=== PATIENT | male | born 1990 ===

== ENCOUNTER 2024-05-17 15:21 | Emergency (ER) | payer OTHER, BC | END 2024-05-17 16:37 | LOC: LL.ED 15:21 | DX: S43.101A Unspecified dislocation of right acromioclavicular joint, initial encounter (principal); M25.811 Other specified joint disorders, right shoulder; Z79.899 Other long term (current) drug therapy; X58.XXXA Exposure to other specified factors, initial encounter | CPT/HCPCS: 73030-RT; 99283 ==